=== PATIENT | female | born 1965 | race African-American/Black ===

== ENCOUNTER 2019-11-27 12:56 | Inpatient (IN) | payer OTHER ==
--- NOTE | 2019-11-27 13:31 | BHS.RME ---
Substance Use & Tx History - Substance Use History Alcohol Substance amount: one pint Vodka Frequency of use: Daily Substance route: Oral Date of Last Use: 11/25/19 Cocaine-Crack Substance amount: $200 Frequency of use: Daily Substance route: Smoking Date of Last Use: 11/25/19 - Last Treatment Date of last treatment: first visit, was in detox at [facility] one year ago Physical/Psych/Mental Status - Behavior General Behavior: Increased activity (restlessness, agitation) Eye Contact: Normal - Cooperativeness Cooperativeness: Cooperative - Thinking Thought Processes: Tight Thought content: Future oriented - Physical Health Problems Is patient presently having any pain?: Yes (burning on urination) Does patient presently have any injuries (include location): No Does patient currently have a fever: No CIWA Nausea/Vomitin-Mild Nausea/No Vomiting Muscle Tremors: 3 Anxiety: 4-Mod. Anxious/Guarded Agitation: 3 Paroxysmal Sweats: 1-Minimal Palms Moist Orientation: 0-Oriented Tacttile Disturbances: 0-None Auditory Disturbances: 0-None Visual Disturbances: 0-None Headache: 0-None Present CIWA-Ar Total Score: 12
[2019-11-27 14:17] VITALS: BMI 22.8
--- NOTE | 2019-11-27 15:02 | HP ---
CIWA Score Nausea/Vomitin-Mild Nausea/No Vomiting Muscle Tremors: 3 Anxiety: 4-Mod. Anxious/Guarded Agitation: 3 Paroxysmal Sweats: 1-Minimal Palms Moist Orientation: 0-Oriented Tacttile Disturbances: 0-None Auditory Disturbances: 0-None Visual Disturbances: 0-None Headache: 0-None Present CIWA-Ar Total Score: 12 - Admission Criteria OASAS Guidelines: Admission for Medically Managed Detox: Requires at least one of the followin. CIWA greater than 12 2. Seizures within the past 24 hours 3. Delirium tremens within the past 24 hours 4. Hallucinations within the past 24 hours 5. Acute intervention needed for co occurring medical disorder 6. Acute intervention needed for co occurring psychiatric disorder 7. Severe withdrawal that cannot be handled at a lower level of care (continued vomiting, continued diarrhea, abnormal vital signs) requiring intravenous medication and/or fluids 8. Admitting History and Physical - Admission Chief Complaint: 54 yo F presenting for alcohol detox; "I want to stop drinking and smoking crack." History of Present Illness: 54 yo F presenting for alcohol detox; "I want to stop drinking and smoking crack." Last drink was 2 days ago. Pt reports inconsistent history of last detox (pt stated 1 year ago earlierl; now stating 3 years ago). First time at [facility]. Pt reports no periods of sobriety since her last detox; reports drinking 1 pint of vodka daily or every other day. Reports no specific triggers. Pt reports she is tired of her "bad habits" impacting her health because she doesn't take h er medications regularly when she drinks. Pt reports she has had a UTI since early in November and was prescribed bactrim. Pt has not taken any of her prescribed dose; reports dysuria and urinary frequency; denies fevers/chills/back pain. PMH - asthma (albuterol inhaler in the past), HTN (amlodipine, carvedilol, hydralazine), HLD (atorvastatin), ?CHF (lasix), HIV + (for 20 years; doesn't recall last CD4 count; on biktarvy - inconsistently takes it) PSH - pt reports cardiac stent x 1 (5-6 years ago) Psych - denies Soc/Dom - pt lives in an SR[place]; currently unemployed, receives welfare Legal - none - Substance Use History Alcohol Substance amount: one pint Vodka Frequency of use: Daily Substance route: Oral Date of Last Use: 11/25/19 Cocaine-Crack Substance amount: $200 Frequency of use: Daily Substance route: Smoking Date of Last Use: 11/25/19 - Last Treatment Date of last treatment: first visit, was in detox at [facility] one year ago History Source: Patient Limitations to Obtaining History: No Limitations - Past Medical History ...LMP: 11/27/18 ...: No - Smoking History Smoking history: Former smoker Have you smoked in the past 12 months: Yes If you are a former smoker, when did you quit?: 1995 Admission ROS [facility] [facility] Allergies/Adverse Reactions: Allergies Allergy/AdvReac Type Severity Reaction Status Date / Time penicillin G Allergy Intermediate Hives Verified 11/27/19 13:55 - Ebola screening Have you traveled outside of the country in the last 21 days: No Have you been sick,other than usual withdrawal symptoms: No Do you have a fever: No - Review of Systems Constitutional: Changes in sleep (insomnia), Unintentional Wgt. Loss (20 lbs in last 6 months) EENT: reports: Blurred Vision (nearsighted - wears glasses) Respiratory: reports: No Symptoms reported Cardiac: reports: No Symptoms Reported GI: reports: Nausea (intermittent mild nausea, none currently), Poor Appetite (decreased d/t alcohol) : reports: Burning, Dysuria, Frequency Musculoskeletal: reports: No Symptoms Reported Integumentary: reports: No Symptoms Reported Neuro: reports: Other (mild shakiness, but no current tremors) Endocrine: reports: No Symptoms Reported Hematology: reports: No Symptoms Reported Psychiatric: reports: Anxious, Depressed (midly depressed (lonely, sad); no SI/HI), other (Mild restlessness) Patient History - Patient Medical History Hx Asthma: Yes Hx Chronic Obstructive Pulmonary Disease (COPD): No Hx Cardiac Disorders: Yes (STENT X1 - PT UNSURE OF DATE) Hx Hypertension: Yes (2015 - MULTIPLE MEDICATIONS) Hx Seizures: No Hx Diabetes: No Hx Gastrointestinal Disorders: No Hx Genitourinary Disorders: No Hx Sexually Transmitted Disorders: No Hx Renal Disease (ESRD): No Hx Depression: No Hx Suicide Attempt: No Hx Schizophrenia: No - Patient Surgical History Past Surgical History: Yes Hx Neurologic Surgery: No Hx Cataract Extraction: No Hx Cardiac Surgery: Yes (STENT X1 - PT UNSURE OF DATE) Hx Lung Surgery: No Hx Breast Surgery: No Hx Breast Biopsy: No Hx Abdominal Surgery: No Hx Appendectomy: No Hx Cholecystectomy: No Hx Genitourinary Surgery: No Hx Section: No Hx Orthopedic Surgery: No Other Surgical History: BLOOD TRANSFUSION- UNSURE OF DATE Anesthesia Reaction: No - PPD History Previous Implant?: Yes Documented Results: Negative w/o proof - Reproductive History Last Menstrual Period: 11/27/18 Patient : No - Smoking Cessation Smoking history: Former smoker Have you smoked in the past 12 months: Yes If you are a former smoker, when did you quit?: 1995 Cigars Per Day: 0 Hx Chewing Tobacco Use: No Initiated information on smoking cessation: No Admission Physical Exam [facility] - Vital Signs Vital Signs: Vital Signs - 24 hr 11/27/19 14:16 Temperature 97.7 F Pulse Rate 88 Respiratory 18 Rate Blood Pressure 134/88 - Physical General Appearance: Yes: No Apparent Distress, Nourished, Appropriately Dressed HEENTM: Yes: EOMI, Hearing grossly Normal, Normocephalic, Normal Voice Respiratory: Yes: Lungs Clear, Normal Breath Sounds, No Respiratory Distress, No Accessory Muscle Use Neck: Yes: Supple, Trachea in good position Breast: Yes: Breast Exam Deferred Cardiology: Yes: Regular Rhythm, Regular Rate Abdominal: Yes: Normal Bowel Sounds, Non Tender, Flat, Soft, Other (no suprapubic tenderness) Genitourinary: Yes: Other (deferred) Back: Yes: Normal Inspection, Other (no CVA tenderness) Musculoskeletal: Yes: full range of Motion, Gait Steady Extremities: Yes: Normal Inspection, Normal Range of Motion, Non-Tender Neurological: Yes: Fully Oriented, Alert, Motor Strength 5/5 Integumentary: Yes: Normal Color, Dry, Warm Cleared for Admission S - Detox or Rehab S Level of Care: Medically Managed Detox Regimen/Protocol: Librium Breathalyzer - Breathalyzer Breathalyzer: 0 Urine Drug Screen - Control Is test valid?: Yes - Results Drug screen NEGATIVE: No Urine drug screen results: SAIGE-Cocaine Inpatient Rehab Admission - Rehab Decision to Admit Inpatient rehab admission?: No
[2019-11-27] MEDS ORDERED: ACETAMINOPHEN 325 MG TABLET (FP) PO PRN ×2 (15:17)
[2019-11-27] MEDS ORDERED: METHOCARBAMOL 500 MG TABLET PO PRN (15:17)
[2019-11-27] MEDS ORDERED: MAG HYDROX/AL HYDROX/SIMETH 30 ML UNIT-DOSE CUP PO PRN (15:17)
[2019-11-27] MEDS ORDERED: ONDANSETRON *ODT* 4 MG TABLET SL PRN (15:17)
[2019-11-27] MEDS ORDERED: IBUPROFEN 400 MG TABLET (FP) PO PRN (15:17)
[2019-11-27] MEDS ORDERED: MENTHOL/PHENOL 1 EACH UD MM PRN (15:17)
[2019-11-27] MEDS ORDERED: chlordiazePOXIDE HCL 25 MG CAPSULE PO PRN (15:17)
[2019-11-27] MEDS ORDERED: MAGNESIUM CITRATE 300 ML BOTTLE PO PRN (15:17)
[2019-11-27] MEDS ORDERED: MAGNESIUM HYDROX 2400MG/30ML ORAL SUSPENSION 30 ML CUP PO PRN (15:17)
[2019-11-27] MEDS ORDERED: BISMUTH SUBSALICYLATE 262 MG/15 ML BTL PO PRN (15:37)
[2019-11-27 17:35] LABS: BILIRUBIN,TOTAL 0.2 mg/dL (0.2-1); BLOOD UREA NITROGEN 22.7 mg/dL (7-18); CALCIUM 8.6 mg/dL (8.5-10.1); CREATININE 1.3 mg/dL (0.55-1.3); HEMOGLOBIN 11.4 GM/dL (10.7-15.3); MCH 27.4 pg (25.7-33.7); MCHC 32.5 g/dl (32.0-36.0); MEAN CELL VOLUME 84.2 fl (80-96); PLATELET COUNT 113 K/MM3 (134-434); POTASSIUM 4.1 mmol/L (3.5-5.1); RBC 4.15 M/mm3 (3.60-5.2); RDW 14.4 % (11.6-15.6); TOT PROT 9.2 g/dl (6.4-8.2); WHITE BLOOD COUNT 6.9 K/mm3 (4.0-10.0)
[2019-11-27] MEDS: chlordiazePOXIDE HCL 25 MG CAPSULE PO SCH ×2 (17:58→22:58)
[2019-11-27] MEDS: hydrOXYzine PAMOATE 25 MG CAPSULE (FP) PO SCH ×2 (18:03→22:58)
[2019-11-27] MEDS: [UNRECOGNIZED DRUG - OTHER] PO SCH (22:55)
[2019-11-27] MEDS: SULFAMETHOXAZOLE PO SCH (22:55)
[2019-11-27] MEDS: MELATONIN 5 MG TABLETS PO SCH (22:57)
[2019-11-27] MEDS: THIAMINE HCL 100 MG TABLET (FP) PO SCH (22:58)
[2019-11-28] MEDS: chlordiazePOXIDE HCL 25 MG CAPSULE PO SCH ×4 (06:13→22:39)
[2019-11-28] MEDS: hydrOXYzine PAMOATE 25 MG CAPSULE (FP) PO SCH ×3 (06:14→13:27)
--- NOTE | 2019-11-28 08:34 | PN ---
Teaching Attending Note Name of Resident: Vinay Garcia ATTENDING PHYSICIAN STATEMENT I saw and evaluated the patient. I reviewed the resident's note and discussed the case with the resident. I agree with the resident's findings and plan as documented. SUBJECTIVE: OBJECTIVE: ASSESSMENT AND PLAN: 1. Alcohol withdrawal, uncomplicated Plan 1. Librium detox protocol, admit
--- NOTE | 2019-11-28 10:32 | EKG ---
Test Reason : Blood Pressure : / mmHG Vent. Rate : 061 BPM Atrial Rate : 061 BPM P-R Int : 152 ms QRS Dur : 086 ms QT Int : 426 ms P-R-T Axes : 004 -12 167 degrees QTc Int : 428 ms NORMAL SINUS RHYTHM INFERIOR INFARCT , AGE UNDETERMINED T WAVE ABNORMALITY, CONSIDER LATERAL ISCHEMIA ABNORMAL ECG NO PREVIOUS ECGS AVAILABLE Confirmed by SOBIA WANG MD ([id number]) on 11/28/2019 10:32:18 AM Referred By: Confirmed By:SOBIA WANG MD
[2019-11-28] MEDS: PRENATAL VITAMINS W/ FOLIC ACID TABLET (FP) PO SCH (10:40)
[2019-11-28] MEDS: [UNRECOGNIZED DRUG - OTHER] PO SCH (11:04)
[2019-11-28] MEDS: SULFAMETHOXAZOLE PO SCH (11:04)
[2019-11-28] MEDS: BICTEGRAV/EMTRICIT/TENOFOV (BIKTARVY) 50-200-25 MG TABLET PO SCH (11:04)
[2019-11-28] MEDS ORDERED: hydrOXYzine PAMOATE 25 MG CAPSULE (FP) PO PRN (15:10)
--- NOTE | 2019-11-28 15:10 | PN ---
S CIWA - CIWA Score Nausea/Vomitin-No Nausea/No Vomiting Muscle Tremors: 3 Anxiety: 2 Agitation: 3 Paroxysmal Sweats: 2 Orientation: 0-Oriented Tacttile Disturbances: 0-None Auditory Disturbances: 0-None Visual Disturbances: 0-None Headache: 0-None Present CIWA-Ar Total Score: 10 BHS Progress Note (SOAP) Subjective: sweats shakes body aches interrupted sleep leg cramping Objective: 11/28/19 15:09 Vital Signs Temperature 97.5 F L 11/28/19 13:04 Pulse Rate 85 11/28/19 13:04 Respiratory Rate 18 11/28/19 13:04 Blood Pressure 134/73 11/28/19 13:04 O2 Sat by Pulse Oximetry (%) 100 11/28/19 13:04 Laboratory Tests 11/27/19 11/27/19 11/27/19 15:10 15:10 15:10 WBC 6.9 RBC 4.15 Hgb 11.4 Hct 35.0 MCV 84.2 MCH 27.4 MCHC 32.5 RDW 14.4 Plt Count 113 L MPV 10.0 Sodium 136 Potassium 4.1 Chloride 106 Carbon Dioxide 24 Anion Gap 6 L BUN 22.7 H Creatinine 1.3 Est GFR (CKD-EPI)AfAm 53.86 Est GFR (CKD-EPI)NonAf 46.47 Random Glucose 103 Calcium 8.6 Total Bilirubin 0.2 AST 45 H ALT 31 Alkaline Phosphatase 140 H Total Protein 9.2 H Albumin 3.0 L Syphilis Serology Reactive A* RPR Titer 11/27/19 15:10 WBC RBC Hgb Hct MCV MCH MCHC RDW Plt Count MPV Sodium Potassium Chloride Carbon Dioxide Anion Gap BUN Creatinine Est GFR (CKD-EPI)AfAm Est GFR (CKD-EPI)NonAf Random Glucose Calcium Total Bilirubin AST ALT Alkaline Phosphatase Total Protein Albumin Syphilis Serology RPR Titer Reactive 1:1 H labs noted aaox3 ambulating no acute distress Assessment: 11/28/19 15:09 withdrawals Plan: continue detox roboxin prn increase fluids
[2019-11-28] MEDS: THIAMINE HCL 100 MG TABLET (FP) PO SCH (22:39)
[2019-11-28] MEDS: MELATONIN 5 MG TABLETS PO SCH (22:40)
[2019-11-28] MEDS: CARVEDILOL 3.125 MG TABLET (FP) PO SCH (22:40)
[2019-11-29] MEDS: chlordiazePOXIDE HCL 25 MG CAPSULE PO SCH ×4 (06:54→22:18)
[2019-11-29] MEDS: amLODIPine BESYLATE 10 MG TABLET (FP) PO SCH (10:41)
[2019-11-29] MEDS: BICTEGRAV/EMTRICIT/TENOFOV (BIKTARVY) 50-200-25 MG TABLET PO SCH (10:41)
[2019-11-29] MEDS: PRENATAL VITAMINS W/ FOLIC ACID TABLET (FP) PO SCH (10:41)
[2019-11-29] MEDS: [UNRECOGNIZED DRUG - OTHER] PO SCH (10:41)
[2019-11-29] MEDS: SULFAMETHOXAZOLE PO SCH (10:41)
[2019-11-29] MEDS: CARVEDILOL 3.125 MG TABLET (FP) PO SCH ×2 (10:41→22:18)
[2019-11-29] MEDS: hydrALAZINE HCL 10 MG TABLET PO SCH (10:41)
[2019-11-29] MEDS: ATORVASTATIN CA 40 MG TABLET (FP) PO SCH (10:41)
--- NOTE | 2019-11-29 17:53 | PN ---
[facility] CIWA - CIWA Score Nausea/Vomitin-No Nausea/No Vomiting Muscle Tremors: 2 Anxiety: 3 Agitation: 1-Slight > Activity Paroxysmal Sweats: 2 Orientation: 0-Oriented Tacttile Disturbances: 0-None Auditory Disturbances: 0-None Visual Disturbances: 2-Mild Sensitivity Headache: 0-None Present CIWA-Ar Total Score: 10 S Progress Note (SOAP) Subjective: Fatigue, Anxious, Sweating. Objective: Patient A & O X 3, Observed Ambulating on Detox Unit Unassisted. In No Acute Distress. 11/29/19 17:50 Vital Signs Temperature 98.1 F 11/29/19 12:48 Pulse Rate 107 H 11/29/19 12:48 Respiratory Rate 16 11/29/19 12:48 Blood Pressure 124/64 11/29/19 12:48 O2 Sat by Pulse Oximetry (%) 95 11/29/19 12:48 Laboratory Tests 11/27/19 11/27/19 11/27/19 14:39 15:10 15:10 WBC 6.9 RBC 4.15 Hgb 11.4 Hct 35.0 MCV 84.2 MCH 27.4 MCHC 32.5 RDW 14.4 Plt Count 113 L MPV 10.0 Sodium 136 Potassium 4.1 Chloride 106 Carbon Dioxide 24 Anion Gap 6 L BUN 22.7 H Creatinine 1.3 Est GFR (CKD-EPI)AfAm 53.86 Est GFR (CKD-EPI)NonAf 46.47 Random Glucose 103 Calcium 8.6 Total Bilirubin 0.2 AST 45 H ALT 31 Alkaline Phosphatase 140 H Total Protein 9.2 H Albumin 3.0 L Syphilis Serology RPR Titer COVID-19 (LATRELL) Not detected 11/27/19 11/27/19 15:10 15:10 WBC RBC Hgb Hct MCV MCH MCHC RDW Plt Count MPV Sodium Potassium Chloride Carbon Dioxide Anion Gap BUN Creatinine Est GFR (CKD-EPI)AfAm Est GFR (CKD-EPI)NonAf Random Glucose Calcium Total Bilirubin AST ALT Alkaline Phosphatase Total Protein Albumin Syphilis Serology Reactive A* RPR Titer Reactive 1:1 H COVID-19 (LATRELL) Lab results noted. Detox Admission RPR Result noted: Reactive A; Reactive 1:1. Patient reports that he completed treatment for Syphilis in the past. 11/29/19 17:52 Assessment: 11/29/19 17:51 WITHDRAWAL SYMPTOMS. THROMBOCYTOPENIA. ELEVATED AST, AP LEVELS. AZOTEMIA. REACTIVE RPR. 11/29/19 17:51 Plan: Continue Detox.
[2019-11-29] MEDS: MELATONIN 5 MG TABLETS PO SCH (22:18)
[2019-11-29] MEDS: THIAMINE HCL 100 MG TABLET (FP) PO SCH (22:18)
[2019-11-30] MEDS ORDERED: chlordiazePOXIDE HCL 10 MG CAPSULE PO PRN
[2019-11-30] MEDS: chlordiazePOXIDE HCL 10 MG CAPSULE PO SCH ×4 (07:53→22:07)
[2019-11-30] MEDS: BICTEGRAV/EMTRICIT/TENOFOV (BIKTARVY) 50-200-25 MG TABLET PO SCH (10:15)
[2019-11-30] MEDS: ATORVASTATIN CA 40 MG TABLET (FP) PO SCH (10:15)
[2019-11-30] MEDS: hydrALAZINE HCL 10 MG TABLET PO SCH (10:15)
[2019-11-30] MEDS: SULFAMETHOXAZOLE PO SCH (10:15)
[2019-11-30] MEDS: amLODIPine BESYLATE 10 MG TABLET (FP) PO SCH (10:15)
[2019-11-30] MEDS: [UNRECOGNIZED DRUG - OTHER] PO SCH (10:15)
[2019-11-30] MEDS: PRENATAL VITAMINS W/ FOLIC ACID TABLET (FP) PO SCH (10:15)
[2019-11-30] MEDS: CARVEDILOL 3.125 MG TABLET (FP) PO SCH ×2 (10:15→22:06)
--- NOTE | 2019-11-30 12:58 | PN ---
[facility] CIWA - CIWA Score Nausea/Vomitin-No Nausea/No Vomiting Muscle Tremors: 2 Anxiety: 2 Agitation: 1-Slight > Activity Paroxysmal Sweats: 2 Orientation: 0-Oriented Tacttile Disturbances: 0-None Auditory Disturbances: 0-None Visual Disturbances: 0-None Headache: 0-None Present CIWA-Ar Total Score: 7 S Progress Note (SOAP) Subjective: Complaints of tremors, anxiety and sweats. Objective: 11/30/19 12:57 Vital Signs 11/30/19 11/30/19 06:13 08:46 Temperature 98.0 F 98 F Pulse Rate 72 80 Respiratory 20 19 Rate Blood Pressure 133/72 117/78 O2 Sat by Pulse 96 Oximetry (%) Laboratory Last Values WBC 6.9 K/mm3 (4.0-10.0) 11/27/19 15:10 RBC 4.15 M/mm3 (3.60-5.2) 11/27/19 15:10 Hgb 11.4 GM/dL (10.7-15.3) 11/27/19 15:10 Hct 35.0 % (32.4-45.2) 11/27/19 15:10 MCV 84.2 fl (80-96) 11/27/19 15:10 MCH 27.4 pg (25.7-33.7) 11/27/19 15:10 MCHC 32.5 g/dl (32.0-36.0) 11/27/19 15:10 RDW 14.4 % (11.6-15.6) 11/27/19 15:10 Plt Count 113 K/MM3 (134-434) L 11/27/19 15:10 MPV 10.0 fl (7.5-11.1) 11/27/19 15:10 Sodium 136 mmol/L (136-145) 11/27/19 15:10 Potassium 4.1 mmol/L (3.5-5.1) 11/27/19 15:10 Chloride 106 mmol/L (98-107) 11/27/19 15:10 Carbon Dioxide 24 mmol/L (21-32) 11/27/19 15:10 Anion Gap 6 MMOL/L (8-16) L 11/27/19 15:10 BUN 22.7 mg/dL (7-18) H 11/27/19 15:10 Creatinine 1.3 mg/dL (0.55-1.3) 11/27/19 15:10 Est GFR (CKD-EPI)AfAm 53.86 11/27/19 15:10 Est GFR (CKD-EPI)NonAf 46.47 11/27/19 15:10 Random Glucose 103 mg/dL (74-106) 11/27/19 15:10 Calcium 8.6 mg/dL (8.5-10.1) 11/27/19 15:10 Total Bilirubin 0.2 mg/dL (0.2-1) 11/27/19 15:10 AST 45 U/L (15-37) H 11/27/19 15:10 ALT 31 U/L (13-61) 11/27/19 15:10 Alkaline Phosphatase 140 U/L (45-117) H 11/27/19 15:10 Total Protein 9.2 g/dl (6.4-8.2) H 11/27/19 15:10 Albumin 3.0 g/dl (3.4-5.0) L 11/27/19 15:10 Syphilis Serology Reactive (NONREACTIVE) A* 11/27/19 15:10 RPR Titer Reactive 1:1 (NONREACTIVE) H 11/27/19 15:10 COVID-19 (LATRELL) Not detected (Not Detected) 11/27/19 14:39 labs noted. Assessment: 11/30/19 12:59 Alert and oriented x3, in no acute respiratory distress. Full ROM, ambulatory in the unit without assistance. Skin warm to touch. Withdrawal symptoms. Plan: Continue detox protocol. Increase fluid intake. Repeat BMP for elevated BUN.
[2019-11-30] MEDS ORDERED: MASKS NR ONE (19:59)
[2019-11-30] MEDS: THIAMINE HCL 100 MG TABLET (FP) PO SCH (22:06)
[2019-11-30] MEDS: MELATONIN 5 MG TABLETS PO SCH (23:09)
[2019-12-01] MEDS ORDERED: chlordiazePOXIDE HCL 10 MG CAPSULE PO SCH (05:00)
--- NOTE | 2019-12-01 10:21 | DS ---
[facility] Detox Discharge Summary Admission Date: 11/27/19 Discharge Date: 12/01/19 - History Present History: Alcohol Dependence - Physical Exam Results Vital Signs: Vital Signs Temperature 97.3 F L 12/01/19 05:11 Pulse Rate 70 12/01/19 05:11 Respiratory Rate 12/01/19 05:11 Blood Pressure 131/76 12/01/19 05:11 O2 Sat by Pulse Oximetry (%) 97 12/01/19 05:11 Pertinent Admission Physical Exam Findings: Vital Signs Temperature 97.3 F L 12/01/19 05:11 Pulse Rate 70 12/01/19 05:11 Respiratory Rate 12/01/19 05:11 Blood Pressure 131/76 12/01/19 05:11 O2 Sat by Pulse Oximetry (%) 97 12/01/19 05:11 Laboratory Tests 11/27/19 11/27/19 11/27/19 14:39 15:10 15:10 WBC 6.9 RBC 4.15 Hgb 11.4 Hct 35.0 MCV 84.2 MCH 27.4 MCHC 32.5 RDW 14.4 Plt Count 113 L MPV 10.0 Sodium 136 Potassium 4.1 Chloride 106 Carbon Dioxide 24 Anion Gap 6 L BUN 22.7 H Creatinine 1.3 Est GFR (CKD-EPI)AfAm 53.86 Est GFR (CKD-EPI)NonAf 46.47 Random Glucose 103 Calcium 8.6 Total Bilirubin 0.2 AST 45 H ALT 31 Alkaline Phosphatase 140 H Total Protein 9.2 H Albumin 3.0 L Syphilis Serology RPR Titer COVID-19 (LATRELL) Not detected 11/27/19 11/27/19 15:10 15:10 WBC RBC Hgb Hct MCV MCH MCHC RDW Plt Count MPV Sodium Potassium Chloride Carbon Dioxide Anion Gap BUN Creatinine Est GFR (CKD-EPI)AfAm Est GFR (CKD-EPI)NonAf Random Glucose Calcium Total Bilirubin AST ALT Alkaline Phosphatase Total Protein Albumin Syphilis Serology Reactive A* RPR Titer Reactive 1:1 H COVID-19 (LATRELL) labs noted aaox3 ambulating no acute distress lungs CTA - Treatment Hospital Course: Detox Protocol Followed, Detoxed Safely, Responded well, Discharged Condition Good, Rehab Referral Accepted - Medication Discharge Medications: Ambulatory Orders Amlodipine Besylate 10 mg PO DAILY 11/27/19 Atorvastatin Calcium 40 mg PO DAILY 11/27/19 Bictegrav/Emtricit/Tenofov Ala [Biktarvy 50-200-25 mg Tablet] 1 each PO DAILY 11/27/19 Carvedilol 3.125 mg PO BID 11/27/19 Furosemide [Lasix -] 40 mg PO DAILY 11/27/19 Hydralazine HCl 1 tablet PO DAILY 11/27/19 Sulfamethoxazole/Trimethoprim [Bactrim Ds -] 1 tab PO DAILY 11/27/19 - Diagnosis (1) Alcohol dependence with withdrawal, uncomplicated Current Visit: Yes Status: Chronic (2) Azotemia Current Visit: Yes Status: Chronic (3) Elevated alkaline phosphatase level Current Visit: Yes Status: Acute (4) Elevated aspartate aminotransferase level Current Visit: Yes Status: Acute (5) Positive RPR test Current Visit: Yes Status: Acute (6) Thrombocytopenia Current Visit: Yes Status: Acute - AMA Did Patient Leave Against Medical Advice: No
[2019-12-01 10:31] LABS: CALCIUM 8.9 mg/dL (8.5-10.1); CREATININE 1.1 mg/dL (0.55-1.3); POTASSIUM 4.2 mmol/L (3.5-5.1)
[2019-12-01] MEDS: [UNRECOGNIZED DRUG - OTHER] PO SCH (10:59)
[2019-12-01] MEDS: SULFAMETHOXAZOLE PO SCH (10:59)
[2019-12-01] MEDS: BICTEGRAV/EMTRICIT/TENOFOV (BIKTARVY) 50-200-25 MG TABLET PO SCH (10:59)
[2019-12-01] MEDS: CARVEDILOL 3.125 MG TABLET (FP) PO SCH (10:59)
[2019-12-01] MEDS: amLODIPine BESYLATE 10 MG TABLET (FP) PO SCH (10:59)
[2019-12-01] MEDS: hydrALAZINE HCL 10 MG TABLET PO SCH (10:59)
[2019-12-01] MEDS: PRENATAL VITAMINS W/ FOLIC ACID TABLET (FP) PO SCH (10:59)
[2019-12-01] MEDS: ATORVASTATIN CA 40 MG TABLET (FP) PO SCH (10:59)
[2019-12-01 12:25] VITALS: BP 129/77; PULSE 87; TEMP 96.4
[2019-12-02] MEDS ORDERED: chlordiazePOXIDE HCL 10 MG CAPSULE PO ONE (05:00)
== END 2019-12-01 12:29 | disposition other institution (70) | DRG 775 ==
LOC: YASAS 12:56 → Y6N 14:24
PROVIDERS: ADMIT Allergy & Immunology; ATTEND Allergy & Immunology
PROC: HZ2ZZZZ Detoxification Services for Substance Abuse Treatment (ICD-10-PCS; principal; 2019-11-27)
DX: F10.230 Alcohol dependence with withdrawal, uncomplicated (principal); D69.6 Thrombocytopenia, unspecified; A53.0 Latent syphilis, unspecified as early or late; R74.0 Nonspecific elevation of levels of transaminase and lactic acid dehydrogenase [LDH]; R74.8 Abnormal levels of other serum enzymes; R79.89 Other specified abnormal findings of blood chemistry
CPT/HCPCS: 36415; 80048; 80053; 85027; 86593; 86780; 93005; 93010; U0003

== ENCOUNTER 2019-12-01 12:02 | Inpatient (IN) | payer OTHER ==
--- OUTSIDE RECORDS SUMMARY | 2019-12-01 12:51 | XMS ---
:1965 Author Organization [facility] Support Name Relationship Address Phone UE, UNEMPLOYED Unavailable Unavailable Unavailable UE Unavailable Unavailable Unavailable VICKI RYAN OTHER RELATIONSHIP [address] [employer] [place] [phone] MARGARITO SALINAS OTHER RELATIONSHIP [address] [phone] [employer] [place] [phone] Re-disclosure Warning The records that you are about to access may contain information from federally- assisted alcohol or drug abuse programs. If such information is present, then the following federally mandated warning applies: This information has been disclosed to you from records protected by federal confidentiality rules (42 CFR part 2). The federal rules prohibit you from making any further disclosure of this information unless further disclosure is expressly permitted by the written consent of the person to whom it pertains or as otherwise permitted by 42 CFR part 2. A general authorization for the release of medical or other information is NOT sufficient for this purpose. The Federal rules restrict any use of the information to criminally investigate or prosecute any alcohol or drug abuse patient.The records that you are about to access may contain highly sensitive health information, the redisclosure of which is protected by Article 27-F of the [facility] Public Health law. If you continue you may haveaccess to information: Regarding HIV / AIDS; Provided by facilities licensed or operated by the [facility] Office of Mental Health; or Provided by the [facility] Office for People With Developmental Disabilities. If such information is present, then the following [facility] mandated warning applies: This information has been disclosed to you from confidential records which are protected by state law. State law prohibits you from making any further disclosure of this information without the specific written consent of the person to whom it pertains, or as otherwise permitted by law. Any unauthorized further disclosure in violation of state law may result in a fine or half-way sentence or both. A general authorization for the release of medical or other information is NOT sufficient authorization for further disclosure. Insurance Providers Payer name Policy type Policy ID Covered Covered green party's Policy P jese / Coverage green party ID relationship to [place] [employer] ormation type [place] JOSH [id number] ESSENCE [id number] 400 HEALTH NON CAP Results ID Date Data Source [id number] 11/27/2019 02:39:00 PM EDT [facility] Name Value Range Interpretation Description Data Sup porting Code Source(s) Document(s ) SARS [facility] coronavirus 2 RNA This lab was ordered by [facility] princess Mcdonald and reported by [facility]. ID Date Data Source [id number] 10/08/2019 12:00:00 AM EDT [facility] Name Value Range Interpretation Code Description Data Sara rce(s) Supporting Document(s ) 2018-nCoV [facility] RNA XXX LATRELL+probe- Imp This lab was ordered by [facility] [employer] CINDY and reported by [employer] ID Date Data Source [id number] 09/13/2019 12:00:00 AM EDT [facility] Name Value Range Interpretation Code Description Data Sara rce(s) Supporting Document(s ) 2019-nCoV [facility] RNA XXX LATRELL+probe- Imp This lab was ordered by [facility] [employer] CINDY and reported by [employer] Procedure
--- OUTSIDE RECORDS SUMMARY | 2019-12-01 12:52 | XMS ---
:1965 Author Organization [facility] Support Name Relationship Address Phone UE, UNEMPLOYED Unavailable Unavailable Unavailable UE Unavailable Unavailable Unavailable VICKI RYAN OTHER RELATIONSHIP [address] [phone] [place] [employer] [phone] MARGARITO SALINAS OTHER RELATIONSHIP [address] [place] [employer] [phone] Re-disclosure Warning The records that you are [...] is protected by Article 27-F of the [facility] Public Health law. If you continue you may haveaccess to information: Regarding HIV / AIDS; Provided by facilities licensed or operated by the [facility] Office of Mental Health; or Provided by the [facility] Office for People With Developmental Disabilities. If such information is present, then the following [facility] mandated warning applies: This information has been [...] law may result in a fine or assisted sentence or both. A general authorization for the release of medical or other information is NOT sufficient authorization for further disclosure. Insurance Providers Payer name Policy type Policy ID Covered Covered alliance party's Policy P jese / Coverage alliance party ID relationship to [place] [employer] or[employer]ation type [place] JOSH [id number] ESSENCE [id number] 400 HEALTH NON CAP Results ID Date Data Source [id number] 11/27/2019 02:39:00 PM EDT [facility] Name Value Range Interpretation Description Data Sup porting Code Source(s) Document(s ) SARS [facility] coronavirus 2 RNA This lab was ordered by [facility] princess Mcdonald and reported by [facility]. ID Date Data Source [id number] 10/08/2019 12:00:00 AM EDT [facility] Name Value Range Interpretation Code Description Data Sara rce(s) Supporting Document(s ) 2018-nCoV [facility] RNA XXX LATRELL+probe- Imp This lab was ordered by [facility] [employer] CINDY and reported by [employer] ID Date Data Source [id number] 09/13/2019 12:00:00 AM EDT [facility] Name Value Range Interpretation Code Description Data Sara rce(s) Supporting Document(s ) 2019-nCoV [facility] RNA XXX LATRELL+probe- Imp This lab was ordered by [facility] [employer] CINDY and reported by [employer] Procedure
--- NOTE | 2019-12-01 12:53 | HP ---
[facility] Rehab Assess/Revision - Admission History Admitted to Rehab from: [facility] - Findings Detox History & Physical reviewed: Yes Concur with findings: Yes Inpatient Rehab Admission - Rehab Decision to Admit Inpatient rehab admission?: Yes - Initial Determination Are CD services needed?: Yes Free of communicable disease: Yes Not in need of hospitalization: Yes - Rehab Admission Criteria Previous failed treatment: Yes Poor recovery environment: Yes Comorbidities: Yes Lacks judgement: No Patient is meeting Inpatient Rehab admission criteria:: Yes
[2019-12-01] MEDS ORDERED: ACETAMINOPHEN 325 MG TABLET (FP) PO PRN (12:55)
[2019-12-01] MEDS ORDERED: P-EPHED 60MG/TRIPROLIDI 2.5MG TABLET PO PRN (12:55)
[2019-12-01] MEDS ORDERED: NICOTINE POLACRILEX 2 MG GUM BUC PRN (12:55)
[2019-12-01] MEDS ORDERED: MAGNESIUM CITRATE 300 ML BOTTLE PO PRN (12:55)
[2019-12-01] MEDS ORDERED: MAGNESIUM HYDROX 2400MG/30ML ORAL SUSPENSION 30 ML CUP PO PRN (12:55)
[2019-12-01] MEDS ORDERED: LOPERAMIDE HCL 2 MG CAPSULE PO PRN (12:55)
[2019-12-01] MEDS ORDERED: MAG HYDROX/AL HYDROX/SIMETH 30 ML UNIT-DOSE CUP PO PRN (12:55)
[2019-12-01] MEDS ORDERED: PT OWN MED DRAWER 7, Y5N ONE (16:00)
[2019-12-01] MEDS: THIAMINE HCL 100 MG TABLET (FP) PO SCH (21:21)
[2019-12-01] MEDS: MELATONIN 5 MG TABLETS PO SCH (21:21)
[2019-12-01] MEDS: CARVEDILOL 3.125 MG TABLET (FP) PO SCH ×2 (21:22→22:00)
[2019-12-02] MEDS: BICTEGRAV/EMTRICIT/TENOFOV (BIKTARVY) 50-200-25 MG TABLET PO SCH (09:00)
[2019-12-02] MEDS: amLODIPine BESYLATE 10 MG TABLET (FP) PO SCH (09:38)
[2019-12-02] MEDS: CARVEDILOL 3.125 MG TABLET (FP) PO SCH ×2 (09:38→22:40)
[2019-12-02] MEDS: hydrALAZINE HCL 10 MG TABLET PO SCH (09:38)
[2019-12-02] MEDS: SULFAMETHOXAZOLE/TRIMETHOPRIM 800MG/160MG D.S. TABLET PO SCH (09:38)
[2019-12-02] MEDS: ATORVASTATIN CA 40 MG TABLET (FP) PO SCH (09:38)
[2019-12-02] MEDS: FUROSEMIDE 40 MG TABLET (FP) PO SCH (09:39)
[2019-12-02] MEDS: PRENATAL VITAMINS W/ FOLIC ACID TABLET (FP) PO SCH (09:39)
[2019-12-02] MEDS ORDERED: NICOTINE 7 MG/24 HOURS TOPICAL PATCH TD SCH (10:00)
--- NOTE | 2019-12-02 16:38 | PN ---
[facility] Progress Note Note: Pt with a hx of Asthma and takes Albuterol inhaler as needed. Denies SOB at this time Vital Signs - 24 hr 12/01/19 12/02/19 12/02/19 21:37 07:15 08:49 Temperature 97.3 F L Pulse Rate 79 86 Respiratory 18 Rate Blood Pressure 109/71 130/82 O2 Sat by Pulse 97 100 Oximetry (%) 12/02/19 14:00 Temperature Pulse Rate Respiratory Rate Blood Pressure O2 Sat by Pulse 98 Oximetry (%) Alert o x e nad oob ambulating with steady gait Reorder albuterol inhaler prn for Asthma sx.
[2019-12-02] MEDS: THIAMINE HCL 100 MG TABLET (FP) PO SCH (21:15)
[2019-12-02] MEDS: hydrOXYzine PAMOATE 25 MG CAPSULE (FP) PO PRN (21:15)
[2019-12-02] MEDS: MELATONIN 5 MG TABLETS PO SCH (21:16)
[2019-12-03] MEDS: BICTEGRAV/EMTRICIT/TENOFOV (BIKTARVY) 50-200-25 MG TABLET PO SCH (09:00)
[2019-12-03] MEDS: SULFAMETHOXAZOLE/TRIMETHOPRIM 800MG/160MG D.S. TABLET PO SCH (09:58)
[2019-12-03] MEDS: hydrALAZINE HCL 10 MG TABLET PO SCH (09:58)
[2019-12-03] MEDS: CARVEDILOL 3.125 MG TABLET (FP) PO SCH ×2 (09:58→21:24)
[2019-12-03] MEDS: amLODIPine BESYLATE 10 MG TABLET (FP) PO SCH (09:59)
[2019-12-03] MEDS: ATORVASTATIN CA 40 MG TABLET (FP) PO SCH (09:59)
[2019-12-03] MEDS: FUROSEMIDE 40 MG TABLET (FP) PO SCH (09:59)
[2019-12-03] MEDS: PRENATAL VITAMINS W/ FOLIC ACID TABLET (FP) PO SCH (09:59)
[2019-12-03] MEDS: THIAMINE HCL 100 MG TABLET (FP) PO SCH (21:24)
[2019-12-03] MEDS: MELATONIN 5 MG TABLETS PO SCH (21:24)
[2019-12-03] MEDS: hydrOXYzine PAMOATE 25 MG CAPSULE (FP) PO PRN (21:24)
[2019-12-04] MEDS ORDERED: PT OWN MED DRAWER 7, Y5N ONE ×2 (08:54→09:47)
[2019-12-04] MEDS ORDERED: MASKS NR ONE (09:07)
[2019-12-04] MEDS: PRENATAL VITAMINS W/ FOLIC ACID TABLET (FP) PO SCH (09:45)
[2019-12-04] MEDS: amLODIPine BESYLATE 10 MG TABLET (FP) PO SCH (09:46)
[2019-12-04] MEDS: CARVEDILOL 3.125 MG TABLET (FP) PO SCH ×2 (09:46→21:10)
[2019-12-04] MEDS: FUROSEMIDE 40 MG TABLET (FP) PO SCH (09:46)
[2019-12-04] MEDS: hydrALAZINE HCL 10 MG TABLET PO SCH (09:46)
[2019-12-04] MEDS: ATORVASTATIN CA 40 MG TABLET (FP) PO SCH (09:46)
[2019-12-04] MEDS: SULFAMETHOXAZOLE/TRIMETHOPRIM 800MG/160MG D.S. TABLET PO SCH (09:46)
[2019-12-04] MEDS: BICTEGRAV/EMTRICIT/TENOFOV (BIKTARVY) 50-200-25 MG TABLET PO SCH (09:47)
[2019-12-04] MEDS: THIAMINE HCL 100 MG TABLET (FP) PO SCH (21:09)
[2019-12-04] MEDS: hydrOXYzine PAMOATE 25 MG CAPSULE (FP) PO PRN (21:10)
[2019-12-04] MEDS: MELATONIN 5 MG TABLETS PO SCH (21:11)
[2019-12-05] MEDS: hydrALAZINE HCL 10 MG TABLET PO SCH (10:03)
[2019-12-05] MEDS: amLODIPine BESYLATE 10 MG TABLET (FP) PO SCH (10:04)
[2019-12-05] MEDS: FUROSEMIDE 40 MG TABLET (FP) PO SCH (10:04)
[2019-12-05] MEDS: SULFAMETHOXAZOLE/TRIMETHOPRIM 800MG/160MG D.S. TABLET PO SCH (10:04)
[2019-12-05] MEDS: ATORVASTATIN CA 40 MG TABLET (FP) PO SCH (10:04)
[2019-12-05] MEDS: CARVEDILOL 3.125 MG TABLET (FP) PO SCH ×2 (10:04→21:59)
[2019-12-05] MEDS: PRENATAL VITAMINS W/ FOLIC ACID TABLET (FP) PO SCH (10:05)
[2019-12-05] MEDS: BICTEGRAV/EMTRICIT/TENOFOV (BIKTARVY) 50-200-25 MG TABLET PO SCH (10:06)
[2019-12-05] MEDS ORDERED: PT OWN MED DRAWER 7, Y5N ONE (10:09)
[2019-12-05] MEDS: THIAMINE HCL 100 MG TABLET (FP) PO SCH (21:59)
[2019-12-05] MEDS: hydrOXYzine PAMOATE 25 MG CAPSULE (FP) PO PRN (21:59)
[2019-12-05] MEDS: MELATONIN 5 MG TABLETS PO SCH (22:00)
[2019-12-06] MEDS: BICTEGRAV/EMTRICIT/TENOFOV (BIKTARVY) 50-200-25 MG TABLET PO SCH (09:00)
[2019-12-06] MEDS: SULFAMETHOXAZOLE/TRIMETHOPRIM 800MG/160MG D.S. TABLET PO SCH (09:07)
[2019-12-06] MEDS: amLODIPine BESYLATE 10 MG TABLET (FP) PO SCH (09:07)
[2019-12-06] MEDS: CARVEDILOL 3.125 MG TABLET (FP) PO SCH ×2 (09:07→21:28)
[2019-12-06] MEDS: hydrALAZINE HCL 10 MG TABLET PO SCH (09:07)
[2019-12-06] MEDS: FUROSEMIDE 40 MG TABLET (FP) PO SCH (09:08)
[2019-12-06] MEDS: ATORVASTATIN CA 40 MG TABLET (FP) PO SCH (09:08)
[2019-12-06] MEDS: PRENATAL VITAMINS W/ FOLIC ACID TABLET (FP) PO SCH (09:08)
[2019-12-06] MEDS: guaiFENesin 200 MG/10 ML 10 ML UNIT-DOSE CUPS PO PRN (19:08)
[2019-12-06] MEDS: MENTHOL/PHENOL 1 EACH UD MM PRN (19:09)
[2019-12-06] MEDS ORDERED: PT OWN MED DRAWER 7, Y5N ONE (21:28)
[2019-12-06] MEDS: MELATONIN 5 MG TABLETS PO SCH (21:29)
[2019-12-06] MEDS: THIAMINE HCL 100 MG TABLET (FP) PO SCH (21:29)
[2019-12-07] MEDS ORDERED: PT OWN MED DRAWER 7, Y5N ONE (08:17)
[2019-12-07] MEDS: BICTEGRAV/EMTRICIT/TENOFOV (BIKTARVY) 50-200-25 MG TABLET PO SCH (09:00)
[2019-12-07] MEDS: ATORVASTATIN CA 40 MG TABLET (FP) PO SCH (09:49)
[2019-12-07] MEDS: amLODIPine BESYLATE 10 MG TABLET (FP) PO SCH (09:49)
[2019-12-07] MEDS: FUROSEMIDE 40 MG TABLET (FP) PO SCH (09:49)
[2019-12-07] MEDS: hydrALAZINE HCL 10 MG TABLET PO SCH (09:49)
[2019-12-07] MEDS: SULFAMETHOXAZOLE/TRIMETHOPRIM 800MG/160MG D.S. TABLET PO SCH (09:49)
[2019-12-07] MEDS: PRENATAL VITAMINS W/ FOLIC ACID TABLET (FP) PO SCH (09:50)
[2019-12-07] MEDS: CARVEDILOL 3.125 MG TABLET (FP) PO SCH ×2 (09:50→21:27)
[2019-12-07] MEDS: guaiFENesin 200 MG/10 ML 10 ML UNIT-DOSE CUPS PO PRN (21:27)
[2019-12-07] MEDS: MELATONIN 5 MG TABLETS PO SCH (21:27)
[2019-12-07] MEDS: hydrOXYzine PAMOATE 25 MG CAPSULE (FP) PO PRN (21:27)
[2019-12-07] MEDS: THIAMINE HCL 100 MG TABLET (FP) PO SCH (21:28)
[2019-12-07] MEDS: MENTHOL/PHENOL 1 EACH UD MM PRN (21:30)
[2019-12-08] MEDS: BICTEGRAV/EMTRICIT/TENOFOV (BIKTARVY) 50-200-25 MG TABLET PO SCH (08:40)
[2019-12-08] MEDS ORDERED: ATORVASTATIN CA 20 MG TABLET (FP) ONE (09:01)
[2019-12-08] MEDS: PRENATAL VITAMINS W/ FOLIC ACID TABLET (FP) PO SCH (10:14)
[2019-12-08] MEDS: FUROSEMIDE 40 MG TABLET (FP) PO SCH (10:15)
[2019-12-08] MEDS: ATORVASTATIN CA 40 MG TABLET (FP) PO SCH (10:15)
[2019-12-08] MEDS: amLODIPine BESYLATE 10 MG TABLET (FP) PO SCH (10:15)
[2019-12-08] MEDS: SULFAMETHOXAZOLE/TRIMETHOPRIM 800MG/160MG D.S. TABLET PO SCH (10:15)
[2019-12-08] MEDS: CARVEDILOL 3.125 MG TABLET (FP) PO SCH ×2 (10:16→21:33)
[2019-12-08] MEDS: hydrALAZINE HCL 10 MG TABLET PO SCH (10:16)
[2019-12-08] MEDS ORDERED: ALBUTEROL SO4 HFA INHALER IH PRN (10:57)
--- NOTE | 2019-12-08 11:03 | PN ---
S Progress Note Note: Vital Signs Temperature 98.6 F 12/08/19 10:00 Pulse Rate 90 12/08/19 10:00 Respiratory Rate 18 12/08/19 10:00 Blood Pressure 126/78 12/08/19 10:00 O2 Sat by Pulse Oximetry (%) 99 12/07/19 20:51 Patient c/o insomnia and "staying up all night". PE: alert and oriented x 3 skin warm and dry in nad ext full rom, amb ad zoe A/P: insomnia Will start Trazodone 50mg po hs prn monitor clinically
[2019-12-08] MEDS: traZODone HCL 50 MG TABLET (FP) PO PRN (21:32)
[2019-12-08] MEDS: hydrOXYzine PAMOATE 25 MG CAPSULE (FP) PO PRN (21:32)
[2019-12-08] MEDS: THIAMINE HCL 100 MG TABLET (FP) PO SCH (21:32)
[2019-12-08] MEDS: MELATONIN 5 MG TABLETS PO SCH (21:33)
[2019-12-09] MEDS: PRENATAL VITAMINS W/ FOLIC ACID TABLET (FP) PO SCH (10:05)
[2019-12-09] MEDS: SULFAMETHOXAZOLE/TRIMETHOPRIM 800MG/160MG D.S. TABLET PO SCH (10:06)
[2019-12-09] MEDS: FUROSEMIDE 40 MG TABLET (FP) PO SCH (10:06)
[2019-12-09] MEDS: CARVEDILOL 3.125 MG TABLET (FP) PO SCH ×2 (10:06→21:20)
[2019-12-09] MEDS: ATORVASTATIN CA 40 MG TABLET (FP) PO SCH (10:06)
[2019-12-09] MEDS: amLODIPine BESYLATE 10 MG TABLET (FP) PO SCH (10:06)
[2019-12-09] MEDS: BICTEGRAV/EMTRICIT/TENOFOV (BIKTARVY) 50-200-25 MG TABLET PO SCH (10:07)
[2019-12-09] MEDS: hydrALAZINE HCL 10 MG TABLET PO SCH (10:07)
[2019-12-09] MEDS ORDERED: PT OWN MED DRAWER 7, Y5N ONE (10:09)
[2019-12-09] MEDS: hydrOXYzine PAMOATE 25 MG CAPSULE (FP) PO PRN (21:19)
[2019-12-09] MEDS: THIAMINE HCL 100 MG TABLET (FP) PO SCH (21:19)
[2019-12-09] MEDS: traZODone HCL 50 MG TABLET (FP) PO PRN (21:19)
[2019-12-09] MEDS: MELATONIN 5 MG TABLETS PO SCH (21:20)
[2019-12-10] MEDS: BICTEGRAV/EMTRICIT/TENOFOV (BIKTARVY) 50-200-25 MG TABLET PO SCH (08:05)
[2019-12-10] MEDS ORDERED: PT OWN MED DRAWER 7, Y5N ONE (08:07)
[2019-12-10] MEDS: SULFAMETHOXAZOLE/TRIMETHOPRIM 800MG/160MG D.S. TABLET PO SCH (09:40)
[2019-12-10] MEDS: CARVEDILOL 3.125 MG TABLET (FP) PO SCH ×2 (09:40→21:22)
[2019-12-10] MEDS: hydrALAZINE HCL 10 MG TABLET PO SCH (09:40)
[2019-12-10] MEDS: amLODIPine BESYLATE 10 MG TABLET (FP) PO SCH (09:41)
[2019-12-10] MEDS: ATORVASTATIN CA 40 MG TABLET (FP) PO SCH (09:41)
[2019-12-10] MEDS: FUROSEMIDE 40 MG TABLET (FP) PO SCH (09:41)
[2019-12-10] MEDS: PRENATAL VITAMINS W/ FOLIC ACID TABLET (FP) PO SCH (09:41)
[2019-12-10] MEDS: IBUPROFEN 400 MG TABLET (FP) PO PRN (15:52)
[2019-12-10] MEDS: MELATONIN 5 MG TABLETS PO SCH (21:21)
[2019-12-10] MEDS: traZODone HCL 50 MG TABLET (FP) PO PRN (21:21)
[2019-12-10] MEDS: THIAMINE HCL 100 MG TABLET (FP) PO SCH (21:21)
[2019-12-10] MEDS: hydrOXYzine PAMOATE 25 MG CAPSULE (FP) PO PRN (21:21)
[2019-12-11] MEDS: BICTEGRAV/EMTRICIT/TENOFOV (BIKTARVY) 50-200-25 MG TABLET PO SCH (07:45)
[2019-12-11] MEDS: FUROSEMIDE 40 MG TABLET (FP) PO SCH (09:49)
[2019-12-11] MEDS: SULFAMETHOXAZOLE/TRIMETHOPRIM 800MG/160MG D.S. TABLET PO SCH (09:49)
[2019-12-11] MEDS: CARVEDILOL 3.125 MG TABLET (FP) PO SCH ×2 (09:49→21:15)
[2019-12-11] MEDS: ATORVASTATIN CA 40 MG TABLET (FP) PO SCH (09:49)
[2019-12-11] MEDS: amLODIPine BESYLATE 10 MG TABLET (FP) PO SCH (09:49)
[2019-12-11] MEDS: hydrALAZINE HCL 10 MG TABLET PO SCH (09:50)
[2019-12-11] MEDS: PRENATAL VITAMINS W/ FOLIC ACID TABLET (FP) PO SCH (09:50)
[2019-12-11] MEDS: hydrOXYzine PAMOATE 25 MG CAPSULE (FP) PO PRN ×2 (09:51→21:15)
[2019-12-11] MEDS: guaiFENesin 200 MG/10 ML 10 ML UNIT-DOSE CUPS PO PRN (17:02)
[2019-12-11] MEDS: THIAMINE HCL 100 MG TABLET (FP) PO SCH (21:14)
[2019-12-11] MEDS: MELATONIN 5 MG TABLETS PO SCH (21:15)
[2019-12-11] MEDS: traZODone HCL 50 MG TABLET (FP) PO PRN (21:15)
[2019-12-12] MEDS ORDERED: PT OWN MED DRAWER 7, Y5N ONE ×2 (08:21→19:31)
[2019-12-12] MEDS: BICTEGRAV/EMTRICIT/TENOFOV (BIKTARVY) 50-200-25 MG TABLET PO SCH (09:00)
[2019-12-12] MEDS: CARVEDILOL 3.125 MG TABLET (FP) PO SCH ×2 (09:24→21:16)
[2019-12-12] MEDS: amLODIPine BESYLATE 10 MG TABLET (FP) PO SCH (09:24)
[2019-12-12] MEDS: hydrALAZINE HCL 10 MG TABLET PO SCH (09:24)
[2019-12-12] MEDS: FUROSEMIDE 40 MG TABLET (FP) PO SCH (09:24)
[2019-12-12] MEDS: ATORVASTATIN CA 40 MG TABLET (FP) PO SCH (09:24)
[2019-12-12] MEDS: SULFAMETHOXAZOLE/TRIMETHOPRIM 800MG/160MG D.S. TABLET PO SCH (09:24)
[2019-12-12] MEDS: PRENATAL VITAMINS W/ FOLIC ACID TABLET (FP) PO SCH (09:25)
[2019-12-12] MEDS: THIAMINE HCL 100 MG TABLET (FP) PO SCH (21:16)
[2019-12-12] MEDS: MELATONIN 5 MG TABLETS PO SCH (21:16)
[2019-12-13] MEDS ORDERED: PT OWN MED DRAWER 7, Y5N ONE ×2 (08:44→09:14)
[2019-12-13] MEDS: BICTEGRAV/EMTRICIT/TENOFOV (BIKTARVY) 50-200-25 MG TABLET PO SCH (08:45)
[2019-12-13] MEDS: IBUPROFEN 400 MG TABLET (FP) PO PRN (08:45)
[2019-12-13] MEDS: SULFAMETHOXAZOLE/TRIMETHOPRIM 800MG/160MG D.S. TABLET PO SCH (11:00)
[2019-12-13] MEDS: FUROSEMIDE 40 MG TABLET (FP) PO SCH (11:05)
[2019-12-13] MEDS: CARVEDILOL 3.125 MG TABLET (FP) PO SCH ×2 (11:05→21:15)
[2019-12-13] MEDS: ATORVASTATIN CA 40 MG TABLET (FP) PO SCH (11:05)
[2019-12-13] MEDS: hydrALAZINE HCL 10 MG TABLET PO SCH (11:05)
[2019-12-13] MEDS: PRENATAL VITAMINS W/ FOLIC ACID TABLET (FP) PO SCH (11:05)
[2019-12-13] MEDS: amLODIPine BESYLATE 10 MG TABLET (FP) PO SCH (11:05)
[2019-12-13] MEDS: MELATONIN 5 MG TABLETS PO SCH (21:14)
[2019-12-13] MEDS: THIAMINE HCL 100 MG TABLET (FP) PO SCH (21:14)
[2019-12-14] MEDS: IBUPROFEN 400 MG TABLET (FP) PO PRN ×2 (04:31→19:31)
[2019-12-14 06:58] VITALS: TEMP 98
[2019-12-14] MEDS: BICTEGRAV/EMTRICIT/TENOFOV (BIKTARVY) 50-200-25 MG TABLET PO SCH (09:51)
[2019-12-14] MEDS: hydrALAZINE HCL 10 MG TABLET PO SCH (09:51)
[2019-12-14] MEDS: PRENATAL VITAMINS W/ FOLIC ACID TABLET (FP) PO SCH (09:51)
[2019-12-14] MEDS: FUROSEMIDE 40 MG TABLET (FP) PO SCH (09:52)
[2019-12-14] MEDS: CARVEDILOL 3.125 MG TABLET (FP) PO SCH ×2 (09:52→21:26)
[2019-12-14] MEDS: ATORVASTATIN CA 40 MG TABLET (FP) PO SCH (09:52)
[2019-12-14] MEDS: amLODIPine BESYLATE 10 MG TABLET (FP) PO SCH (09:52)
[2019-12-14] MEDS: SULFAMETHOXAZOLE/TRIMETHOPRIM 800MG/160MG D.S. TABLET PO SCH (09:52)
[2019-12-14] MEDS ORDERED: PT OWN MED DRAWER 7, Y5N ONE (09:57)
[2019-12-14] MEDS: THIAMINE HCL 100 MG TABLET (FP) PO SCH (21:24)
[2019-12-14 21:25] VITALS: BP 133/79; PULSE 109
[2019-12-14] MEDS: hydrOXYzine PAMOATE 25 MG CAPSULE (FP) PO PRN (21:25)
[2019-12-14] MEDS: traZODone HCL 50 MG TABLET (FP) PO PRN (21:25)
[2019-12-14] MEDS: MELATONIN 5 MG TABLETS PO SCH (21:26)
[2019-12-15] MEDS: BICTEGRAV/EMTRICIT/TENOFOV (BIKTARVY) 50-200-25 MG TABLET PO SCH (07:17)
[2019-12-15] MEDS ORDERED: PT OWN MED DRAWER 7, Y5N ONE (08:21)
--- NOTE | 2019-12-15 08:44 | DS ---
[facility] Rehab Discharge Summary - [facility] Rehab Discharge Summary Admission Date: 12/01/19 Discharge Date: 12/15/19 - History Present History: Alcohol dependence - Discharge Physical Exam Vital Signs: Vital Signs Temperature 98.0 F 12/14/19 06:22 Pulse Rate 109 H 12/14/19 21:24 Respiratory Rate 18 12/14/19 06:22 Blood Pressure 133/79 12/14/19 21:24 O2 Sat by Pulse Oximetry (%) 97 12/14/19 21:02 Vital Signs (72 hours) 12/12/19 12/12/19 12/13/19 13:30 21:45 09:00 Temperature 98.4 F Pulse Rate 110 H 103 H Respiratory 18 Rate Blood Pressure 103/78 139/83 O2 Sat by Pulse 99 100 Oximetry (%) 12/13/19 12/13/19 12/14/19 13:54 20:22 06:22 Temperature 98.0 F Pulse Rate 105 H 94 H Respiratory 18 Rate Blood Pressure 115/78 114/80 O2 Sat by Pulse 99 100 99 Oximetry (%) 12/14/19 12/14/19 12/14/19 09:30 14:06 21:02 Temperature Pulse Rate 84 Respiratory Rate Blood Pressure 114/74 O2 Sat by Pulse 100 97 Oximetry (%) 12/14/19 21:24 Temperature Pulse Rate 109 H Respiratory Rate Blood Pressure 133/79 O2 Sat by Pulse Oximetry (%) ROS: denies fever, cough, chest pain, shakes, sob and alcohol cravings. PE: alert and oriented x 3 skin warm and dry car s1s2, rrr resp cta bl, no wheezes or rales ext no edema, full rom, no tremors denies SI/HI A/P: alcohol dependence HIV + HTN HLD patient is medically stable for d/c follow up with pcp Dr. Rupert Cruz within one week of d/c - Treatment Discharge Condition: Discharge condition good, Rehabilitated safely, Responded well Hospital Course: Patient discharged from rehab today for alcohol dependence. She is medically stable and denies SI/HI. During course of treatment, patient attended group meetings and 1:1 sessions with counseling staff. Aftercare arranged for [facility] for 12/17/2019 at 11am. Patient medically advised to continue with OTP to prevent relapse and to follow up with PCP Dr. Rupert Cruz as recommended. Ambulatory Orders Albuterol Sulfate Inhaler - 2 puff IH PRN 12/02/19 Albuterol Sulfate Inhaler - [Ventolin HFA Inhaler -] 2 inh PO Q4H #1 inh 12/15/19 Amlodipine Besylate 10 mg PO DAILY #14 tablet 12/15/19 Atorvastatin Calcium 40 mg PO DAILY #14 tablet 12/15/19 Bictegrav/Emtricit/Tenofov Ala [Biktarvy 50-200-25 mg Tablet] 1 each PO DAILY #30 tablet 12/15/19 Carvedilol 3.125 mg PO BID #28 tablet 12/15/19 Furosemide [Lasix -] 40 mg PO DAILY #14 tablet 12/15/19 Hydralazine HCl 1 tablet PO DAILY #14 tablet 12/15/19 Sulfamethoxazole/Trimethoprim [Bactrim DS -] 1 tab PO DAILY #30 tablet 12/15/19 - Medication Discharge Medications: Ambulatory Orders Albuterol Sulfate Inhaler - 2 puff IH PRN 12/02/19 Albuterol Sulfate Inhaler - [Ventolin HFA Inhaler -] 2 inh PO Q4H #1 inh 12/15/19 Amlodipine Besylate 10 mg PO DAILY #14 tablet 12/15/19 Atorvastatin Calcium 40 mg PO DAILY #14 tablet 12/15/19 Bictegrav/Emtricit/Tenofov Ala [Biktarvy 50-200-25 mg Tablet] 1 each PO DAILY #30 tablet 12/15/19 Carvedilol 3.125 mg PO BID #28 tablet 12/15/19 Furosemide [Lasix -] 40 mg PO DAILY #14 tablet 12/15/19 Hydralazine HCl 1 tablet PO DAILY #14 tablet 12/15/19 Sulfamethoxazole/Trimethoprim [Bactrim DS -] 1 tab PO DAILY #30 tablet 12/15/19 - Medication-Assisted Treatment (MAT) Medication-Assisted Treatment (MAT): No - Discharge Instructions Diet, activity, other medical instructions: Diet: regular Activity: amb ad zoe as tolerated Other medical instructions: f/u with pcp as recommended - Follow-up Referral Minutes to complete discharge: 35 - AMA Did Patient Leave Against Medical Advice: No
[2019-12-15] MEDS: ATORVASTATIN CA 40 MG TABLET (FP) PO SCH (09:04)
[2019-12-15] MEDS: amLODIPine BESYLATE 10 MG TABLET (FP) PO SCH (09:04)
[2019-12-15] MEDS: SULFAMETHOXAZOLE/TRIMETHOPRIM 800MG/160MG D.S. TABLET PO SCH (09:04)
[2019-12-15] MEDS: FUROSEMIDE 40 MG TABLET (FP) PO SCH (09:04)
[2019-12-15] MEDS: hydrALAZINE HCL 10 MG TABLET PO SCH (09:04)
[2019-12-15] MEDS: CARVEDILOL 3.125 MG TABLET (FP) PO SCH (09:05)
[2019-12-15] MEDS: PRENATAL VITAMINS W/ FOLIC ACID TABLET (FP) PO SCH (09:09)
== END 2019-12-15 09:12 | disposition home or self-care (01) | DRG 772 ==
LOC: YASAS 12:02 → Y3E 12:03
PROVIDERS: ADMIT Allergy & Immunology; ATTEND Allergy & Immunology
PROC: HZ42ZZZ Group Counseling for Substance Abuse Treatment, Cognitive-Behavioral (ICD-10-PCS; principal; 2019-12-01)
DX: F10.20 Alcohol dependence, uncomplicated (principal); Z21 Asymptomatic human immunodeficiency virus [HIV] infection status; I10 Essential (primary) hypertension; E78.5 Hyperlipidemia, unspecified; G47.00 Insomnia, unspecified; J45.909 Unspecified asthma, uncomplicated

== ENCOUNTER 2020-04-20 13:52 | Inpatient (IN) | payer OTHER ==
[2020-04-20 17:17] VITALS: BMI 23.3
[2020-04-20] MEDS ORDERED: NICOTINE POLACRILEX 2 MG GUM BUC PRN (17:38)
[2020-04-20] MEDS ORDERED: ONDANSETRON *ODT* 4 MG TABLET SL PRN (17:38)
[2020-04-20] MEDS ORDERED: MAG HYDROX/AL HYDROX/SIMETH 30 ML UNIT-DOSE CUP PO PRN (17:38)
[2020-04-20] MEDS ORDERED: IBUPROFEN 400 MG TABLET (FP) PO PRN (17:38)
[2020-04-20] MEDS ORDERED: BISMUTH SUBSALICYLATE 524 MG/30 ML UD PO PRN (17:38)
[2020-04-20] MEDS ORDERED: LORazepam 1 MG TABLET PO PRN (17:38)
[2020-04-20] MEDS ORDERED: MAGNESIUM CITRATE 300 ML BOTTLE PO PRN (17:38)
[2020-04-20] MEDS ORDERED: MENTHOL/PHENOL 1 EACH UD MM PRN (17:38)
[2020-04-20] MEDS ORDERED: MAGNESIUM HYDROX 2400MG/30ML ORAL SUSPENSION 30 ML CUP PO PRN (17:38)
[2020-04-20] MEDS ORDERED: ACETAMINOPHEN 325 MG TABLET (FP) PO PRN ×2 (17:38)
[2020-04-20] MEDS ORDERED: METHOCARBAMOL 500 MG TABLET PO PRN (17:38)
[2020-04-20] MEDS ORDERED: LORazepam 1 MG TABLET ONE (19:17)
[2020-04-20] MEDS ORDERED: LORazepam 2 MG TABLET ONE (22:57)
[2020-04-20] MEDS: LORazepam 2 MG TABLET PO SCH (22:59)
[2020-04-20] MEDS: MELATONIN 5 MG TABLETS PO SCH (22:59)
[2020-04-20] MEDS: THIAMINE HCL 100 MG TABLET (FP) PO SCH (22:59)
[2020-04-21] MEDS ORDERED: LORazepam 2 MG TABLET ONE (05:25)
[2020-04-21] MEDS: LORazepam 2 MG TABLET PO SCH ×4 (05:26→23:03)
[2020-04-21] MEDS: NICOTINE 14 MG/24 HOURS TOPICAL PATCH TD SCH (11:19)
[2020-04-21] MEDS: PRENATAL VITAMINS W/ FOLIC ACID TABLET (FP) PO SCH (11:20)
[2020-04-21 13:41] LABS: HEMATOCRIT 31.6 % (32.4-45.2); HEMOGLOBIN 10.1 GM/dL (10.7-15.3); MCH 26.8 pg (25.7-33.7); MEAN CELL VOLUME 83.6 fl (80-96); MEAN PLT VOLUME 9.8 fl (7.5-11.1); PLATELET COUNT 113 K/MM3 (134-434); RBC 3.77 M/mm3 (3.60-5.2); WHITE BLOOD COUNT 4.4 K/mm3 (4.0-10.0)
[2020-04-21 13:49] LABS: POTASSIUM 4.2 mmol/L (3.5-5.1)
[2020-04-21 14:01] LABS: ALBUMIN 2.7 g/dl (3.4-5.0); BLOOD UREA NITROGEN 17.1 mg/dL (7-18); CALCIUM 8.6 mg/dL (8.5-10.1)
[2020-04-21 14:04] LABS: CREATININE 1.1 mg/dL (0.55-1.3)
[2020-04-21 14:06] LABS: BILIRUBIN,TOTAL 0.2 mg/dL (0.2-1)
[2020-04-21] MEDS: THIAMINE HCL 100 MG TABLET (FP) PO SCH (23:00)
[2020-04-21] MEDS: MELATONIN 5 MG TABLETS PO SCH (23:00)
[2020-04-22] MEDS: LORazepam 1 MG TABLET PO SCH ×4 (06:15→22:48)
[2020-04-22] MEDS: NICOTINE 14 MG/24 HOURS TOPICAL PATCH TD SCH (10:26)
[2020-04-22] MEDS: PRENATAL VITAMINS W/ FOLIC ACID TABLET (FP) PO SCH (10:26)
[2020-04-22] MEDS ORDERED: ALBUTEROL SO4 HFA INHALER IH PRN (14:18)
[2020-04-22] MEDS ORDERED: BICTEGRAV/EMTRICIT/TENOFOV (BIKTARVY) 50-200-25 MG TABLET PO SCH (14:30)
[2020-04-22] MEDS: BICTEGRAV/EMTRICIT/TENOFOV (BIKTARVY) 50-200-25 MG TABLET PO SCH (15:48)
[2020-04-22] MEDS: ATORVASTATIN CA 40 MG TABLET (FP) PO SCH (22:48)
[2020-04-22] MEDS: MELATONIN 5 MG TABLETS PO SCH (22:48)
[2020-04-22] MEDS: THIAMINE HCL 100 MG TABLET (FP) PO SCH (22:48)
[2020-04-23] MEDS ORDERED: LORazepam 0.5 MG TABLET PO PRN
[2020-04-23] MEDS: LORazepam 0.5 MG TABLET PO SCH ×4 (07:00→23:00)
[2020-04-23] MEDS: BICTEGRAV/EMTRICIT/TENOFOV (BIKTARVY) 50-200-25 MG TABLET PO SCH (07:00)
[2020-04-23] MEDS: NICOTINE 14 MG/24 HOURS TOPICAL PATCH TD SCH (12:29)
[2020-04-23] MEDS: PRENATAL VITAMINS W/ FOLIC ACID TABLET (FP) PO SCH (12:29)
[2020-04-23] MEDS: MELATONIN 5 MG TABLETS PO SCH (23:00)
[2020-04-23] MEDS: THIAMINE HCL 100 MG TABLET (FP) PO SCH (23:00)
[2020-04-23] MEDS: ATORVASTATIN CA 40 MG TABLET (FP) PO SCH (23:00)
[2020-04-24] MEDS ORDERED: LORazepam 0.5 MG TABLET PO ONE (05:00)
[2020-04-24] MEDS: BICTEGRAV/EMTRICIT/TENOFOV (BIKTARVY) 50-200-25 MG TABLET PO SCH (07:04)
[2020-04-24] MEDS: PRENATAL VITAMINS W/ FOLIC ACID TABLET (FP) PO SCH (10:30)
[2020-04-24] MEDS: NICOTINE 14 MG/24 HOURS TOPICAL PATCH TD SCH (10:30)
[2020-04-24 13:29] VITALS: BP 141/90; PULSE 104; TEMP 97.1
== END 2020-04-24 13:45 | disposition other institution (70) | DRG 774 ==
LOC: YASAS 13:52 → Y6N 04-21 10:07
PROVIDERS: ADMIT Allergy & Immunology; ATTEND Allergy & Immunology
PROC: HZ2ZZZZ Detoxification Services for Substance Abuse Treatment (ICD-10-PCS; principal; 2020-04-21)
DX: F10.230 Alcohol dependence with withdrawal, uncomplicated (principal); F14.20 Cocaine dependence, uncomplicated; F17.210 Nicotine dependence, cigarettes, uncomplicated; Z21 Asymptomatic human immunodeficiency virus [HIV] infection status; I25.10 Atherosclerotic heart disease of native coronary artery without angina pectoris; I11.0 Hypertensive heart disease with heart failure; I50.9 Heart failure, unspecified; Z95.5 Presence of coronary angioplasty implant and graft; A53.0 Latent syphilis, unspecified as early or late; E78.5 Hyperlipidemia, unspecified; J45.20 Mild intermittent asthma, uncomplicated; D50.9 Iron deficiency anemia, unspecified; N39.0 Urinary tract infection, site not specified; Z88.0 Allergy status to penicillin
CPT/HCPCS: 36415; 80053; 81025; 85027; 86593; 86780; 93005; 93010; C9803; U0003

== ENCOUNTER 2020-04-24 14:03 | Inpatient (IN) | payer OTHER ==
[2020-04-24] MEDS ORDERED: MENTHOL/PHENOL 1 EACH UD MM PRN (14:52)
[2020-04-24] MEDS ORDERED: LOPERAMIDE HCL 2 MG CAPSULE PO PRN (14:52)
[2020-04-24] MEDS ORDERED: MAG HYDROX/AL HYDROX/SIMETH 30 ML UNIT-DOSE CUP PO PRN (14:52)
[2020-04-24] MEDS ORDERED: MAGNESIUM CITRATE 300 ML BOTTLE PO PRN (14:52)
[2020-04-24] MEDS ORDERED: IBUPROFEN 400 MG TABLET (FP) PO PRN (14:52)
[2020-04-24] MEDS ORDERED: ACETAMINOPHEN 325 MG TABLET (FP) PO PRN (14:52)
[2020-04-24] MEDS ORDERED: P-EPHED 60MG/TRIPROLIDI 2.5MG TABLET PO PRN (14:52)
[2020-04-24] MEDS ORDERED: MAGNESIUM HYDROX 2400MG/30ML ORAL SUSPENSION 30 ML CUP PO PRN (14:52)
[2020-04-24] MEDS ORDERED: NICOTINE POLACRILEX 2 MG GUM BUC PRN (14:52)
[2020-04-24] MEDS ORDERED: ALBUTEROL SO4 HFA INHALER IH PRN (14:55)
[2020-04-24] MEDS: guaiFENesin 200 MG/10 ML 10 ML UNIT-DOSE CUPS PO PRN (16:02)
[2020-04-24] MEDS: MELATONIN 5 MG TABLETS PO SCH (21:42)
[2020-04-24] MEDS: THIAMINE HCL 100 MG TABLET (FP) PO SCH (21:42)
[2020-04-25] MEDS ORDERED: PT OWN MED DRAWER 7, Y5N ONE (08:50)
[2020-04-25] MEDS: PRENATAL VITAMINS W/ FOLIC ACID TABLET (FP) PO SCH (09:51)
[2020-04-25] MEDS: BICTEGRAV/EMTRICIT/TENOFOV (BIKTARVY) 50-200-25 MG TABLET PO SCH (09:52)
[2020-04-25] MEDS: NICOTINE 14 MG/24 HOURS TOPICAL PATCH TD SCH (09:52)
[2020-04-25] MEDS: guaiFENesin 200 MG/10 ML 10 ML UNIT-DOSE CUPS PO PRN ×2 (12:20→19:44)
[2020-04-25] MEDS: MELATONIN 5 MG TABLETS PO SCH (21:34)
[2020-04-25] MEDS: THIAMINE HCL 100 MG TABLET (FP) PO SCH (21:34)
[2020-04-25] MEDS: ATORVASTATIN CA 40 MG TABLET (FP) PO SCH (21:35)
[2020-04-26] MEDS ORDERED: PT OWN MED DRAWER 7, Y5N ONE ×3 (08:49→21:36)
[2020-04-26] MEDS: BICTEGRAV/EMTRICIT/TENOFOV (BIKTARVY) 50-200-25 MG TABLET PO SCH (09:59)
[2020-04-26] MEDS: PRENATAL VITAMINS W/ FOLIC ACID TABLET (FP) PO SCH (10:00)
[2020-04-26] MEDS: NICOTINE 14 MG/24 HOURS TOPICAL PATCH TD SCH (10:00)
[2020-04-26] MEDS: MELATONIN 5 MG TABLETS PO SCH (21:06)
[2020-04-26] MEDS: ATORVASTATIN CA 40 MG TABLET (FP) PO SCH (21:06)
[2020-04-26] MEDS: THIAMINE HCL 100 MG TABLET (FP) PO SCH (21:06)
[2020-04-26] MEDS: CARVEDILOL 3.125 MG TABLET (FP) PO SCH (21:07)
[2020-04-27] MEDS ORDERED: PT OWN MED DRAWER 7, Y5N ONE ×2 (08:40→08:41)
[2020-04-27] MEDS: NICOTINE 14 MG/24 HOURS TOPICAL PATCH TD SCH (10:06)
[2020-04-27] MEDS: hydrALAZINE HCL 10 MG TABLET PO SCH (10:07)
[2020-04-27] MEDS: PRENATAL VITAMINS W/ FOLIC ACID TABLET (FP) PO SCH (10:07)
[2020-04-27] MEDS: FUROSEMIDE 40 MG TABLET (FP) PO SCH (10:07)
[2020-04-27] MEDS: CARVEDILOL 3.125 MG TABLET (FP) PO SCH ×2 (10:07→21:28)
[2020-04-27] MEDS: amLODIPine BESYLATE 10 MG TABLET (FP) PO SCH (10:07)
[2020-04-27] MEDS: BICTEGRAV/EMTRICIT/TENOFOV (BIKTARVY) 50-200-25 MG TABLET PO SCH (10:07)
[2020-04-27] MEDS: THIAMINE HCL 100 MG TABLET (FP) PO SCH (21:27)
[2020-04-27] MEDS: MELATONIN 5 MG TABLETS PO SCH (21:27)
[2020-04-27] MEDS: ATORVASTATIN CA 40 MG TABLET (FP) PO SCH (21:27)
[2020-04-28] MEDS ORDERED: PT OWN MED DRAWER 7, Y5N ONE ×2 (08:56→19:29)
[2020-04-28] MEDS: FUROSEMIDE 40 MG TABLET (FP) PO SCH (09:59)
[2020-04-28] MEDS: BICTEGRAV/EMTRICIT/TENOFOV (BIKTARVY) 50-200-25 MG TABLET PO SCH (09:59)
[2020-04-28] MEDS: PRENATAL VITAMINS W/ FOLIC ACID TABLET (FP) PO SCH (09:59)
[2020-04-28] MEDS: amLODIPine BESYLATE 10 MG TABLET (FP) PO SCH (09:59)
[2020-04-28] MEDS: NICOTINE 14 MG/24 HOURS TOPICAL PATCH TD SCH (10:00)
[2020-04-28] MEDS: CARVEDILOL 3.125 MG TABLET (FP) PO SCH ×2 (10:00→21:08)
[2020-04-28] MEDS: hydrALAZINE HCL 10 MG TABLET PO SCH (10:00)
[2020-04-28] MEDS: THIAMINE HCL 100 MG TABLET (FP) PO SCH (21:07)
[2020-04-28] MEDS: ATORVASTATIN CA 40 MG TABLET (FP) PO SCH (21:07)
[2020-04-28] MEDS: MELATONIN 5 MG TABLETS PO SCH (21:07)
[2020-04-29] MEDS ORDERED: PT OWN MED DRAWER 7, Y5N ONE ×2 (08:35→21:44)
[2020-04-29] MEDS: BICTEGRAV/EMTRICIT/TENOFOV (BIKTARVY) 50-200-25 MG TABLET PO SCH (09:44)
[2020-04-29] MEDS: FUROSEMIDE 40 MG TABLET (FP) PO SCH (09:44)
[2020-04-29] MEDS: hydrALAZINE HCL 10 MG TABLET PO SCH (09:44)
[2020-04-29] MEDS: NICOTINE 14 MG/24 HOURS TOPICAL PATCH TD SCH (09:44)
[2020-04-29] MEDS: amLODIPine BESYLATE 10 MG TABLET (FP) PO SCH (09:44)
[2020-04-29] MEDS: CARVEDILOL 3.125 MG TABLET (FP) PO SCH ×2 (09:44→21:39)
[2020-04-29] MEDS: PRENATAL VITAMINS W/ FOLIC ACID TABLET (FP) PO SCH (09:44)
[2020-04-29] MEDS: MELATONIN 5 MG TABLETS PO SCH (21:38)
[2020-04-29] MEDS: THIAMINE HCL 100 MG TABLET (FP) PO SCH (21:38)
[2020-04-29] MEDS: ATORVASTATIN CA 40 MG TABLET (FP) PO SCH (21:39)
[2020-04-30] MEDS: amLODIPine BESYLATE 10 MG TABLET (FP) PO SCH (09:43)
[2020-04-30] MEDS: FUROSEMIDE 40 MG TABLET (FP) PO SCH (09:43)
[2020-04-30] MEDS: PRENATAL VITAMINS W/ FOLIC ACID TABLET (FP) PO SCH (09:43)
[2020-04-30] MEDS: hydrALAZINE HCL 10 MG TABLET PO SCH (09:44)
[2020-04-30] MEDS: CARVEDILOL 3.125 MG TABLET (FP) PO SCH ×2 (09:44→21:47)
[2020-04-30] MEDS ORDERED: PT OWN MED DRAWER 7, Y5N ONE (09:45)
[2020-04-30] MEDS: BICTEGRAV/EMTRICIT/TENOFOV (BIKTARVY) 50-200-25 MG TABLET PO SCH (09:45)
[2020-04-30] MEDS: NICOTINE 14 MG/24 HOURS TOPICAL PATCH TD SCH (09:45)
[2020-04-30] MEDS: ATORVASTATIN CA 40 MG TABLET (FP) PO SCH (21:47)
[2020-04-30] MEDS: THIAMINE HCL 100 MG TABLET (FP) PO SCH (21:47)
[2020-04-30] MEDS: MELATONIN 5 MG TABLETS PO SCH (21:47)
[2020-05-01] MEDS: amLODIPine BESYLATE 10 MG TABLET (FP) PO SCH (09:44)
[2020-05-01] MEDS: FUROSEMIDE 40 MG TABLET (FP) PO SCH (09:44)
[2020-05-01] MEDS: hydrALAZINE HCL 10 MG TABLET PO SCH (09:44)
[2020-05-01] MEDS: CARVEDILOL 3.125 MG TABLET (FP) PO SCH ×2 (09:44→21:15)
[2020-05-01] MEDS: BICTEGRAV/EMTRICIT/TENOFOV (BIKTARVY) 50-200-25 MG TABLET PO SCH (09:45)
[2020-05-01] MEDS: PRENATAL VITAMINS W/ FOLIC ACID TABLET (FP) PO SCH (09:45)
[2020-05-01] MEDS: NICOTINE 14 MG/24 HOURS TOPICAL PATCH TD SCH (09:45)
[2020-05-01] MEDS ORDERED: PT OWN MED DRAWER 7, Y5N ONE (19:04)
[2020-05-01] MEDS: ATORVASTATIN CA 40 MG TABLET (FP) PO SCH (21:14)
[2020-05-01] MEDS: THIAMINE HCL 100 MG TABLET (FP) PO SCH (21:15)
[2020-05-01] MEDS: MELATONIN 5 MG TABLETS PO SCH (21:15)
[2020-05-02] MEDS ORDERED: PT OWN MED DRAWER 7, Y5N ONE ×2 (08:44→10:12)
[2020-05-02] MEDS: NICOTINE 14 MG/24 HOURS TOPICAL PATCH TD SCH (09:30)
[2020-05-02] MEDS: BICTEGRAV/EMTRICIT/TENOFOV (BIKTARVY) 50-200-25 MG TABLET PO SCH (09:31)
[2020-05-02] MEDS: PRENATAL VITAMINS W/ FOLIC ACID TABLET (FP) PO SCH (09:31)
[2020-05-02] MEDS: amLODIPine BESYLATE 10 MG TABLET (FP) PO SCH (10:07)
[2020-05-02] MEDS: FUROSEMIDE 40 MG TABLET (FP) PO SCH (10:07)
[2020-05-02] MEDS: CARVEDILOL 3.125 MG TABLET (FP) PO SCH ×2 (10:07→21:10)
[2020-05-02] MEDS: hydrALAZINE HCL 10 MG TABLET PO SCH (10:07)
[2020-05-02] MEDS: THIAMINE HCL 100 MG TABLET (FP) PO SCH (21:10)
[2020-05-02] MEDS: MELATONIN 5 MG TABLETS PO SCH (21:10)
[2020-05-02] MEDS: hydrOXYzine PAMOATE 25 MG CAPSULE (FP) PO PRN (21:10)
[2020-05-02] MEDS: ATORVASTATIN CA 40 MG TABLET (FP) PO SCH (21:10)
[2020-05-03] MEDS ORDERED: PT OWN MED DRAWER 7, Y5N ONE ×2 (08:41→19:38)
[2020-05-03] MEDS: FUROSEMIDE 40 MG TABLET (FP) PO SCH (09:17)
[2020-05-03] MEDS: hydrALAZINE HCL 10 MG TABLET PO SCH (09:17)
[2020-05-03] MEDS: CARVEDILOL 3.125 MG TABLET (FP) PO SCH ×2 (09:18→21:07)
[2020-05-03] MEDS: PRENATAL VITAMINS W/ FOLIC ACID TABLET (FP) PO SCH (09:18)
[2020-05-03] MEDS: amLODIPine BESYLATE 10 MG TABLET (FP) PO SCH (09:18)
[2020-05-03] MEDS: NICOTINE 14 MG/24 HOURS TOPICAL PATCH TD SCH (09:19)
[2020-05-03] MEDS: BICTEGRAV/EMTRICIT/TENOFOV (BIKTARVY) 50-200-25 MG TABLET PO SCH (09:19)
[2020-05-03] MEDS: THIAMINE HCL 100 MG TABLET (FP) PO SCH (21:07)
[2020-05-03] MEDS: MELATONIN 5 MG TABLETS PO SCH (21:07)
[2020-05-03] MEDS: ATORVASTATIN CA 40 MG TABLET (FP) PO SCH (21:07)
[2020-05-03] MEDS: hydrOXYzine PAMOATE 25 MG CAPSULE (FP) PO PRN (21:08)
[2020-05-04 06:38] VITALS: TEMP 97
[2020-05-04] MEDS ORDERED: PT OWN MED DRAWER 7, Y5N ONE ×2 (08:43→09:34)
[2020-05-04 09:23] VITALS: BP 122/79; PULSE 99
[2020-05-04] MEDS: amLODIPine BESYLATE 10 MG TABLET (FP) PO SCH (09:56)
[2020-05-04] MEDS: PRENATAL VITAMINS W/ FOLIC ACID TABLET (FP) PO SCH (09:56)
[2020-05-04] MEDS: FUROSEMIDE 40 MG TABLET (FP) PO SCH (09:56)
[2020-05-04] MEDS: hydrALAZINE HCL 10 MG TABLET PO SCH (09:56)
[2020-05-04] MEDS: BICTEGRAV/EMTRICIT/TENOFOV (BIKTARVY) 50-200-25 MG TABLET PO SCH (09:56)
[2020-05-04] MEDS: CARVEDILOL 3.125 MG TABLET (FP) PO SCH (09:56)
[2020-05-04] MEDS: NICOTINE 14 MG/24 HOURS TOPICAL PATCH TD SCH (09:57)
== END 2020-05-04 10:06 | disposition home or self-care (01) | DRG 772 ==
LOC: YASAS 14:03 → Y3E 14:04
PROVIDERS: ADMIT Allergy & Immunology; ATTEND Allergy & Immunology
PROC: HZ42ZZZ Group Counseling for Substance Abuse Treatment, Cognitive-Behavioral (ICD-10-PCS; principal; 2020-04-24)
DX: F10.20 Alcohol dependence, uncomplicated (principal); F14.20 Cocaine dependence, uncomplicated; F17.210 Nicotine dependence, cigarettes, uncomplicated; Z21 Asymptomatic human immunodeficiency virus [HIV] infection status; D69.6 Thrombocytopenia, unspecified; D64.9 Anemia, unspecified; E78.5 Hyperlipidemia, unspecified; I11.0 Hypertensive heart disease with heart failure; I50.9 Heart failure, unspecified; J45.909 Unspecified asthma, uncomplicated; Z86.19 Personal history of other infectious and parasitic diseases
CPT/HCPCS: C9803; U0003